=== PATIENT | male | born 1985 ===

== ENCOUNTER 2018-11-25 21:47 | Emergency (ER) | payer OTHER ==
[2018-11-25 22:13] VITALS: BP 122/84; PULSE 83; RESP 20; TEMP 99.4; O2SAT 99
--- NOTE | 2018-11-25 22:59 | C.PDOC ---
History Of Present Illness 33-year-old male presents to the ED for evaluation of right elbow pain which began after he slipped, fell and landed onto the area earlier today. Patient reports he is unable to fully straighten his right arm. He denies head injury, loss of consciousness, extremity numbness/weakness. Time Seen by Provider: 11/25/18 22:08 Chief Complaint (Nursing): Upper Extremity Problem/Injury History Per: Patient History/Exam Limitations: no limitations Onset/Duration Of Symptoms: Hrs Current Symptoms Are (Timing): Still Present Quality: "Pain" Additional History Per: Patient Past Medical History Reviewed: Historical Data, Nursing Documentation, Vital Signs Vital Signs: Last Vital Signs Temp 99.4 F 11/25/18 22:00 Pulse 83 11/25/18 22:00 Resp 20 11/25/18 22:00 BP 122/84 11/25/18 22:00 Pulse Ox 99 11/25/18 22:00 - Medical History PMH: No Chronic Diseases Surgical History: No Surg Hx Family History: States: Unknown Family Hx - Social History Hx Alcohol Use: Yes Hx Substance Use: No Review Of Systems Musculoskeletal: Positive for: Other (right elbow pain ) Skin: Negative for: Rash, Lesions, Jaundice, Bruising Neurological: Negative for: Weakness, Numbness, Other (loss of conscisouness ) Physical Exam - Physical Exam Appears: Well, Non-toxic, No Acute Distress Skin: Normal Color, Warm, No Rash, No Ecchymosis, No Other (open wounds to right upper extremity ) Head: Atraumatic, Normacephalic Extremity: Tenderness (to posterior aspect of right elbow ), Capillary Refill (less than 2 seconds ), No Deformity, No Swelling Pulses: Left Radial: Normal, Right Radial: Normal Neurological/Psych: Oriented x3, Normal Cranial Nerves (grossly intact ) ED Course And Treatment O2 Sat by Pulse Oximetry: 99 (on RA) Pulse Ox Interpretation: Normal Medical Decision Making Medical Decision Making: Progress: Motrin PO given. Right elbow XR ordered and reviewed. XR results are positive for sail sign. Sling applied to right arm. On reassessment, patient is resting comfortably, showing no signs of distress and reports an improvement in his pain. Patient is stable for discharge and advised to follow up with orthopedic care within 1-2 days for further evaluation. Disposition Counseled Patient/Family Regarding: Studies Performed, Diagnosis, Need For Followup - Disposition Referrals: Caio Mcginnis MD [Staff Provider] - Disposition: HOME/ ROUTINE Disposition Time: 22:56 Condition: STABLE Instructions: Elbow Fracture (DC) Forms: [facility] (Cuban), General Discharge Instructions - Clinical Impression Clinical Impression: Elbow fracture, right - PA / E LEARNING SPECIALIST / Resident Statement MD/DO has reviewed & agrees with the documentation as recorded. - Scribe Statement The provider has reviewed the documentation as recorded by the Scribe (Saskia Alcala) All medical record entries made by the Scribe were at my direction and personally dictated by me. I have reviewed the chart and agree that the record accurately reflects my personal performance of the history, physical exam, medical decision making, and the department course for this patient. I have also personally directed, reviewed, and agree with the discharge instructions and disposition.
--- NOTE | 2018-11-26 13:03 | RAD ---
PROCEDURE: Radiographs of the right elbow. HISTORY: injury COMPARISON: No prior. FINDINGS: BONES: No acute displaced fracture. JOINTS: No dislocation. SOFT TISSUES: Soft tissue swelling. No evidence of radiopaque foreign body. JOINT EFFUSION: Question presence of small anterior joint effusion. OTHER FINDINGS: None IMPRESSION: Soft tissue swelling. Question presence of small anterior joint effusion. No acute displaced fracture identified. If high clinical index of suspicion for occult fracture, recommend further evaluation with cross-sectional imaging. Study marked for PA review.
== END 2018-11-25 23:03 | disposition home or self-care (01) ==
LOC: C.ER 21:47
DX: S42.401A Unspecified fracture of lower end of right humerus, initial encounter for closed fracture (principal); W01.0XXA Fall on same level from slipping, tripping and stumbling without subsequent striking against object, initial encounter